=== PATIENT | female | born 1955 | race Caucasian/White ===

== ENCOUNTER 2018-03-14 03:55 | Observation (INO) | payer BC ==
[2018-03-14] MEDS: Nitroglycerin 0.4 MG Tab.SL SL ONE ×2 (04:04→04:09)
[2018-03-14] MEDS: Ondansetron 4 MG/2 ML SDV IVPUSH ONE (04:20)
[2018-03-14] MEDS: Acetaminophen 325 MG Tab PO ONE (04:50)
[2018-03-14] MEDS: GI Cocktail Oral Solution 30 ML PO ONE (05:28)
--- NOTE | 2018-03-14 08:46 | EDM.PDOC ---
ED HPI GENERAL MEDICAL PROBLEM - General Chief Complaint: General Stated Complaint: BACKPAIN Time Seen by Provider: 03/14/18 04:30 Source of Information: Reports: Patient, Family History Limitations: Reports: Other (very uncomfortable due to pain and had some difficulty verbalizing concerns but family helped) - History of Present Illness INITIAL COMMENTS - FREE TEXT/NARRATIVE: This is a 62yo F here for acute onset epigastric pain that radiates to the back. Patient states the pain started around 7pm after eating and worsened. At midnight her pain was extreme and she was vomiting. Patient's discomfort and vomiting worsened and she came via private vehicle to the ER at 4am. Patient states she had a similar episode 2 weeks ago that lasted a few hours where she did vomit but it resolved. She recently had lasagna last night. Patient denies any past medical history. She has had a prior right shoulder surgery with no complications or side effects from anesthesia. Patient has no cardiac or pulmonary history. There is family history of gall bladder disease as her son has had a cholecystectomy. Onset: Gradual Duration: Hour(s): Quality: Reports: Same as Previous Episode, Other (same as previous but this episode got worse and worse) Improves with: Reports: None Worsens with: Reports: None Associated Symptoms: Reports: Loss of Appetite, Nausea/Vomiting, Weakness Treatments PROCESS INSPECTOR: Reports: Other (see below) Other Treatments PROCESS INSPECTOR: Tums, alkaseltzer - Related Data Allergies Allergy/AdvReac Type Severity Reaction Status Date / Time codeine Allergy Headache Verified 03/14/18 05:39 Past Medical History - Past Health History Medical/Surgical History: Denies Medical/Surgical History Social & Family History - Family History Family Medical History: Noncontributory - Tobacco Use Smoking Status *Q: Never Smoker Second Hand Smoke Exposure: No - Caffeine Use Caffeine Use: Reports: Coffee Caffeine Use Comment: 2 cups a day - Recreational Drug Use Recreational Drug Use: No ED ROS GENERAL - Review of Systems Review Of Systems: ROS reveals no pertinent complaints other than HPI. ED EXAM, GENERAL - Physical Exam Exam: See Below Exam Limited By: No Limitations General Appearance: Alert, WD/WN, Severe Distress Eye Exam: Bilateral Eye: EOMI, PERRL Ears: Normal External Exam Nose: Normal Inspection Throat/Mouth: Normal Inspection Head: Atraumatic, Normocephalic Neck: Normal Inspection Respiratory/Chest: No Respiratory Distress GI/Abdominal: Soft, No Distention, No Abnormal Bruit, No Mass, Tender ( epigastrium) Back Exam: Normal Inspection Extremities: Normal Inspection Neurological: Alert, Oriented, CN II-XII Intact Psychiatric: Normal Affect, Normal Mood Skin Exam: Warm, Dry, Intact Course - Vital Signs Last Recorded V/S: Last Vital Signs Temp 36.3 C 03/14/18 10:00 Pulse 56 L 03/14/18 10:00 Resp 16 03/14/18 10:00 BP 94/54 L 03/14/18 10:00 Pulse Ox 94 L 03/14/18 10:00 - Orders/Labs/Meds Orders: Active Orders 24 hr Category Date Time Status EKG Documentation Completion [RC] ASDIRECTED Care 03/14/18 04:41 Active Labs: Laboratory Tests 03/14/18 03/14/18 03/14/18 Range/Units 04:30 04:30 04:54 WBC 8.3 (4.0-11.0) K/uL RBC 5.06 (3.80-5.80) M/uL Hgb 14.8 (11.5-16.5) g/dL Hct 42.3 (37.0-47.0) % MCV 84 (76-96) fL MCH 29.2 (27.0-32.0) pg MCHC 35.0 (31.0-35.0) g/dL RDW 12.3 (11.0-16.0) % Plt Count 206 (150-500) K/uL MPV 9.3 (6.0-10.0) fL Neut % (Auto) 56.2 (45.0-70.0) % Lymph % (Auto) 33.6 (20.0-40.0) % [place] % (Auto) 7.0 (3.0-10.0) % Eos % (Auto) 3.0 (1.0-5.0) % Baso % (Auto) 0.2 (0.0-0.5) % Neut # (Auto) 4.68 (2.00-7.50) K/uL Lymph # (Auto) 2.80 (1.50-4.00) K/uL [place] # (Auto) 0.58 (0.20-0.80) K/uL Eos # (Auto) 0.25 (0.04-0.40) K/uL Baso # (Auto) 0.02 (0.02-0.10) K/uL Sodium 143 (136-145) mmol/L Potassium 3.4 L (3.5-5.1) mmol/L Chloride 105 (98-107) mmol/L Carbon Dioxide 26.5 (21.0-32.0) mmol/L Anion Gap 14.9 (5.0-15.0) mmol/L BUN 15 (8-26) mg/dL Creatinine 0.93 (0.55-1.02) mg/dL Est Cr Clr Drug Dosing TNP Estimated GFR (MDRD) > 60 (>60) MLS/MIN BUN/Creatinine Ratio 16.1 (6-25) Glucose 138 H (74-100) mg/dL Calcium 8.6 (8.5-10.1) mg/dL Total Bilirubin 0.5 (0.0-1.0) mg/dL AST 18 (15-37) U/L ALT 32 (12-78) U/L Alkaline Phosphatase 71 (46-116) U/L Troponin I < 0.017 (0.000-0.060) ng/mL Total Protein 7.1 (6.4-8.2) g/dL Albumin 3.5 (3.4-5.0) g/dL Globulin 3.6 (2.2-4.2) g/dL Albumin/Globulin Ratio 1.0 (0.8-2.0) Lipase 82 (73-393) U/L TSH, Ultra Sensitive 3.627 (0.358-3.740) uIU/mL Urine Color Yellow Urine Appearance Clear (CLEAR) Urine pH 5.0 (5.0-8.0) Ur Specific [place] >= 1.030 (1.003-1.030) Urine Protein Negative (NEGATIVE) mg/dL Urine Glucose (UA) Negative (NEGATIVE) mg/dL Urine Ketones Negative (NEGATIVE) mg/dL Urine Occult Blood Moderate H (NEGATIVE) Urine Nitrite Negative (NEGATIVE) Urine Bilirubin Negative (NEGATIVE) Urine Urobilinogen 0.2 (0.2-1.0) E.U./dL Ur Leukocyte Esterase Negative (NEGATIVE) Urine RBC 0-5 H /HPF Urine WBC Not seen /HPF Ur Squamous Epith Cells Few /HPF Urine Bacteria Few /HPF Meds: Medications Discontinued Medications Generic Name Dose Route Start Last Admin Trade Name Ezequiel PRN Reason Stop Dose Admin Acetaminophen 650 mg 03/14/18 04:55 03/14/18 04:50 Tylenol PO 03/14/18 04:56 650 mg NOW ONE Administration Al Hydroxide/Mg Hydroxide 30 ml 03/14/18 04:55 03/14/18 05:28 Gi Cocktail PO 03/14/18 04:56 Not Given ONETIME ONE Nitroglycerin 0.4 mg 03/14/18 04:40 03/14/18 04:09 Nitrostat SL 03/14/18 04:41 0.4 mg ONETIME ONE Administration Nitroglycerin 0.4 mg 03/14/18 04:35 03/14/18 04:04 Nitrostat SL 03/14/18 04:36 0.4 mg ONETIME ONE Administration Ondansetron HCl 8 mg 03/14/18 04:54 03/14/18 04:20 Zofran IVPUSH 03/14/18 04:55 8 mg ONETIME ONE Administration - Re-Assessments/Exams Free Text/Narrative Re-Assessment/Exam: Symptoms improved over the course of 3 hours. Patient refused pain medications that were narcotics as they make her sick. She did take some tylenol which helped. Departure - Departure Time of Disposition: 06:00 Disposition: Refer to Observation Condition: Fair Clinical Impression: Calculus of gallbladder without cholecystitis with obstruction - Discharge Information - Problem List & Annotations (1) Calculus of gallbladder without cholecystitis with obstruction SNOMED Code(s): 42580918 Code(s): K80.21 - CALCULUS OF GALLBLADDER W/O CHOLECYSTITIS WITH OBSTRUCTION Status: Acute Priority: High Current Visit: Yes - Problem List Review Problem List Initiated/Reviewed/Updated: Yes - My Orders Last 24 Hours: My Active Orders 03/14/18 04:41 EKG Documentation Completion [RC] ASDIRECTED - Assessment/Plan Last 24 Hours: My Active Orders 03/14/18 04:41 EKG Documentation Completion [RC] ASDIRECTED Plan: Patient placed in observation for Calculus of gallbladder with obstruction but without cholecystitis. Continue supportive therapy and management. Pain management as needed. (patient refusing narcotics due to side effects of severe nausea and vomiting)
--- NOTE | 2018-03-14 09:51 | CT ---
DATE OF SERVICE: 03/14/18 CLINICAL DATA: epigastric pain UNENHANCED CHEST CT: Multislice acquisition through the chest without IV contrast was performed. No priors. Breathing motion artifact degrades image quality. There are atelectatic changes in the dependent portion of both lungs and in both lung bases. The lungs are otherwise clear. No pneumothorax. No pleural effusions. The heart size is within normal limits. No pericardial effusion. No hilar or mediastinal adenopathy. No other significant findings. [id number] [facility]
--- NOTE | 2018-03-14 09:58 | CT ---
DATE OF SERVICE: 03/14/18 CLINICAL DATA: epigastric pain UNENHANCED ABDOMEN CT: Multislice acquisition through the abdomen without IV or oral contrast was performed. No priors. The liver is normal size. There is a sharply transcribed 15 mm fluid-density lesion within the left lobe of the liver medial segment consistent in appearance with a benign hepatic cyst. No other focal hepatic lesions. There is a 4 mm calcified gallstone in the region of the neck of the gallbladder. The gallbladder otherwise appears normal. No pericholecystic fluid. The spleen appears normal. The pancreas appears normal. The right and left adrenals appear normal. The right and left kidneys appear normal. No nephrocalcinosis or nephrolithiasis. No hydronephrosis or hydroureter. The appendix is visualized. It is nondilated. No evidence of appendicitis. No free air. No free fluid. No dilated loops of bowel. No adenopathy. No aortic aneurysm. IMPRESSION: Cholelithiasis. [id number] [facility]
--- NOTE | 2018-03-14 10:56 | PCM.DCSUM1 ---
Discharge Summary - Hospital Course HPI Initial Comments: This is a 62yo F here for acute onset epigastric pain that radiates to the back. Patient states the pain started around 7pm after eating and worsened. At midnight her pain was extreme and she was vomiting. Patient's discomfort and vomiting worsened and she came via private vehicle to the ER at 4am. Patient states she had a similar episode 2 weeks ago that lasted a few hours where she did vomit but it resolved. She recently had lasagna last night. Patient denies any past medical history. She has had a prior right shoulder surgery with no complications or side effects from anesthesia. Patient has no cardiac or pulmonary history. There is family history of gall bladder disease as her son has had a cholecystectomy. Brief History: Discussed plan of care with Dr. Araiza - General surgery. Plan for surgery in am - will discharge and travel by private vehicle. Dr. Araiza's nurse will contact patient today. Patient to be NPO at midnight with a light diet at this time. Start trial of light diet prior to discharge. 03/14/18 10:55 Diagnosis: Stroke: No - Discharge Data Discharge Date: 03/14/18 Discharge Disposition: Home, Self-Care 01 Condition: Good - Patient Summary/Data Planned Operative Procedure(s) after DC: Cholecystectomy Hospital Course: Patient symptoms improved throughout the am. Consulted Dr. Araiza and pending am Cholecystectomy. Trial of light diet this am prior to discharge. - Patient Instructions Diet, Other: Light, liquid, no fats, no butter, fruits, and juice only and NPO @ midnight Activity: As Tolerated Notify Provider of: Fever, Increased Pain, Nausea and/or Vomiting - Discharge Plan Patient Handouts: Cholelithiasis, [id number] Forms: ED Department Discharge Referrals: PCP,None [Primary Care Provider] - - Discharge Summary/Plan Comment DC Time >30 min.: Yes Discharge Summary/Plan Comment: Please use the admission and this discharge note as an H&P for her Cholecystectomy. Patient is cleared for surgery. She has had one prior right shoulder surgery with no complications and no side effects to anesthesia. Patient has no cardiovascular or pulmonary medical history or concerns. - General Info Date of Service: 03/14/18 Functional Status: Reports: Pain Controlled, Tolerating Diet, Ambulating - Review of Systems General: Reports: No Symptoms HEENT: Reports: No Symptoms Pulmonary: Reports: No Symptoms Cardiovascular: Reports: No Symptoms Gastrointestinal: Reports: Abdominal Pain (very mild) Genitourinary: Reports: No Symptoms Musculoskeletal: Reports: No Symptoms Skin: Reports: No Symptoms Neurological: Reports: No Symptoms - Patient Data Vitals - Most Recent: Last Vital Signs Temp 36.3 C 03/14/18 06:00 Pulse 55 L 03/14/18 06:00 Resp 20 03/14/18 06:00 BP 108/58 L 03/14/18 06:00 Pulse Ox 99 03/14/18 06:00 Lab Results - Last 24 hrs: Laboratory Results - last 24 hr 03/14/18 03/14/18 03/14/18 Range/Units 04:30 04:30 04:54 WBC 8.3 (4.0-11.0) K/uL RBC 5.06 (3.80-5.80) M/uL Hgb 14.8 (11.5-16.5) g/dL Hct 42.3 (37.0-47.0) % MCV 84 (76-96) fL MCH 29.2 (27.0-32.0) pg MCHC 35.0 (31.0-35.0) g/dL RDW 12.3 (11.0-16.0) % Plt Count 206 (150-500) K/uL MPV 9.3 (6.0-10.0) fL Neut % (Auto) 56.2 (45.0-70.0) % Lymph % (Auto) 33.6 (20.0-40.0) % [place] % (Auto) 7.0 (3.0-10.0) % Eos % (Auto) 3.0 (1.0-5.0) % Baso % (Auto) 0.2 (0.0-0.5) % Neut # (Auto) 4.68 (2.00-7.50) K/uL Lymph # (Auto) 2.80 (1.50-4.00) K/uL [place] # (Auto) 0.58 (0.20-0.80) K/uL Eos # (Auto) 0.25 (0.04-0.40) K/uL Baso # (Auto) 0.02 (0.02-0.10) K/uL Sodium 143 (136-145) mmol/L Potassium 3.4 L (3.5-5.1) mmol/L Chloride 105 (98-107) mmol/L Carbon Dioxide 26.5 (21.0-32.0) mmol/L Anion Gap 14.9 (5.0-15.0) mmol/L BUN 15 (8-26) mg/dL Creatinine 0.93 (0.55-1.02) mg/dL Est Cr Clr Drug Dosing TNP Estimated GFR (MDRD) > 60 (>60) MLS/MIN BUN/Creatinine Ratio 16.1 (6-25) Glucose 138 H (74-100) mg/dL Calcium 8.6 (8.5-10.1) mg/dL Total Bilirubin 0.5 (0.0-1.0) mg/dL AST 18 (15-37) U/L ALT 32 (12-78) U/L Alkaline Phosphatase 71 (46-116) U/L Troponin I < 0.017 (0.000-0.060) ng/mL Total Protein 7.1 (6.4-8.2) g/dL Albumin 3.5 (3.4-5.0) g/dL Globulin 3.6 (2.2-4.2) g/dL Albumin/Globulin Ratio 1.0 (0.8-2.0) Lipase 82 (73-393) U/L TSH, Ultra Sensitive 3.627 (0.358-3.740) uIU/mL Urine Color Yellow Urine Appearance Clear (CLEAR) Urine pH 5.0 (5.0-8.0) Ur Specific [place] >= 1.030 (1.003-1.030) Urine Protein Negative (NEGATIVE) mg/dL Urine Glucose (UA) Negative (NEGATIVE) mg/dL Urine Ketones Negative (NEGATIVE) mg/dL Urine Occult Blood Moderate H (NEGATIVE) Urine Nitrite Negative (NEGATIVE) Urine Bilirubin Negative (NEGATIVE) Urine Urobilinogen 0.2 (0.2-1.0) E.U./dL Ur Leukocyte Esterase Negative (NEGATIVE) Urine RBC 0-5 H /HPF Urine WBC Not seen /HPF Ur Squamous Epith Cells Few /HPF Urine Bacteria Few /HPF 03/14/18 Range/Units 08:30 WBC (4.0-11.0) K/uL RBC (3.80-5.80) M/uL Hgb (11.5-16.5) g/dL Hct (37.0-47.0) % MCV (76-96) fL MCH (27.0-32.0) pg MCHC (31.0-35.0) g/dL RDW (11.0-16.0) % Plt Count (150-500) K/uL MPV (6.0-10.0) fL Neut % (Auto) (45.0-70.0) % Lymph % (Auto) (20.0-40.0) % [place] % (Auto) (3.0-10.0) % Eos % (Auto) (1.0-5.0) % Baso % (Auto) (0.0-0.5) % Neut # (Auto) (2.00-7.50) K/uL Lymph # (Auto) (1.50-4.00) K/uL [place] # (Auto) (0.20-0.80) K/uL Eos # (Auto) (0.04-0.40) K/uL Baso # (Auto) (0.02-0.10) K/uL Sodium (136-145) mmol/L Potassium (3.5-5.1) mmol/L Chloride (98-107) mmol/L Carbon Dioxide (21.0-32.0) mmol/L Anion Gap (5.0-15.0) mmol/L BUN (8-26) mg/dL Creatinine (0.55-1.02) mg/dL Est Cr Clr Drug Dosing Estimated GFR (MDRD) (>60) MLS/MIN BUN/Creatinine Ratio (6-25) Glucose (74-100) mg/dL Calcium (8.5-10.1) mg/dL Total Bilirubin (0.0-1.0) mg/dL AST (15-37) U/L ALT (12-78) U/L Alkaline Phosphatase (46-116) U/L Troponin I < 0.017 (0.000-0.060) ng/mL Total Protein (6.4-8.2) g/dL Albumin (3.4-5.0) g/dL Globulin (2.2-4.2) g/dL Albumin/Globulin Ratio (0.8-2.0) Lipase (73-393) U/L TSH, Ultra Sensitive (0.358-3.740) uIU/mL Urine Color Urine Appearance (CLEAR) Urine pH (5.0-8.0) Ur Specific [place] (1.003-1.030) Urine Protein (NEGATIVE) mg/dL Urine Glucose (UA) (NEGATIVE) mg/dL Urine Ketones (NEGATIVE) mg/dL Urine Occult Blood (NEGATIVE) Urine Nitrite (NEGATIVE) Urine Bilirubin (NEGATIVE) Urine Urobilinogen (0.2-1.0) E.U./dL Ur Leukocyte Esterase (NEGATIVE) Urine RBC /HPF Urine WBC /HPF Ur Squamous Epith Cells /HPF Urine Bacteria /HPF Med Orders - Current: Current Medications Discontinued Medications Acetaminophen (Tylenol) 650 mg PO NOW ONE Stop: 03/14/18 04:56 Last Admin: 03/14/18 04:50 Dose: 650 mg Al Hydroxide/Mg Hydroxide (Gi Cocktail) 30 ml PO ONETIME ONE Stop: 03/14/18 04:56 Last Admin: 03/14/18 05:28 Dose: Not Given Nitroglycerin (Nitrostat) 0.4 mg SL ONETIME ONE Stop: 03/14/18 04:41 Last Admin: 03/14/18 04:09 Dose: 0.4 mg Nitroglycerin (Nitrostat) 0.4 mg SL ONETIME ONE Stop: 03/14/18 04:36 Last Admin: 03/14/18 04:04 Dose: 0.4 mg Ondansetron HCl (Zofran) 8 mg IVPUSH ONETIME ONE Stop: 03/14/18 04:55 Last Admin: 03/14/18 04:20 Dose: 8 mg - Exam General: Reports: Alert, Oriented, Cooperative HEENT: Reports: Pupils Equal, Pupils Reactive, EOMI Neck: Reports: Supple Lungs: Reports: Clear to Auscultation, Normal Respiratory Effort Cardiovascular: Reports: Regular Rate, Regular Rhythm GI/Abdominal Exam: Normal Bowel Sounds, Soft, Tender Back Exam: Reports: Normal Inspection Extremities: Normal Inspection Skin: Reports: Warm, Dry, Intact Neurological: Reports: No New Focal Deficit Psy/Mental Status: Reports: Alert, Normal Affect, Normal Mood
[2018-03-14 14:57] VITALS: BP 99/63
== END 2018-03-14 14:55 | disposition home or self-care (01) ==
LOC: LB.ED 03:55 → LB.MS 05:12 → UNDOADMOB 05:58
PROVIDERS: ADMIT Family Medicine; ATTEND Family Medicine
DX: K80.21 Calculus of gallbladder without cholecystitis with obstruction (principal); Z88.5 Allergy status to narcotic agent
CPT/HCPCS: 36415; 71250; 74150; 80053; 81001; 83690; 84443; 84484; 85025; 93005; 96374; 99285-25; A9270-GY; J2405